=== PATIENT | male | born 1975 | race Caucasian/White ===

== ENCOUNTER 2017-01-29 23:55 | Emergency (ER) | payer SELFPAY ==
[2017-01-30 00:12] LABS: BASOPHILS 0.4 %; BASOPHILS ABSOLUTE 0.04 10/3/uL (0.0-0.16); EOSINOPHILS 1.3 %; EOSINOPHILS ABSOLUTE 0.14 10/3/uL (0.0-0.53); ER CBC TAT 0 Hrs 05 Mins; HEMOGLOBIN 17.2 g/dL (13.6-17.8); IMMATURE GRANULOCYTES 0.5 %; IMMATURE GRANULOCYTES ABSOLUTE 0.05 10/3/uL (0.0-0.11); LYMPHOCYTES 24.3 %; LYMPHOCYTES ABSOLUTE 2.61 10/3/uL (0.67-4.30); MEAN CORPUS HGB CONC 35.4 g/dL (32.0-36.0); MEAN CORPUSCULAR HEMOGLOB 30.6 pg (26.0-34.0); MEAN CORPUSCULAR VOLUME 86.3 fL (80-100); MEAN PLATELET VOLUME 10.6 fL (9.2-13.0); MONOCYTES 5.9 %; MONOCYTES ABSOLUTE 0.63 10/3/uL (0.21-1.20); NEUTROPHILS 67.6 %; NEUTROPHILS ABSOLUTE 7.28 10/3/uL (2.02-8.40); PLATELET COUNT 253 10/3/uL (150-400); RBC DISTRIBUTION WIDTH 13.5 % (12.0-16.0); RED CELL COUNT 5.63 10/6/uL (4.7-6.1); WHITE BLOOD CELLS 10.8 10/3/uL (4.5-10.5)
[2017-01-30 00:14] LABS: HEMATOCRIT 48.6 % (40.0-51.0); MANUAL DIFF NO %
[2017-01-30 00:19] LABS: INTERNATIONAL NORMAL RATI 1.1 UNITS (-); PARTIAL THROMBO TIME 30.9 SEC (22.5-37.2); PROTIME (NOT ORD) 13.6 SEC (12.0-14.5)
[2017-01-30 00:29] LABS: BUN (BLOOD UREA NITROGEN) 16 MG/DL (6-23); CALCIUM, SERUM 9.1 MG/DL (8.5-10.4); CHEST PAIN PROFILE TAT 0 Hrs 22 Mins; CHLORIDE, SERUM 105 MMOL/L (96-112); CO2 (CARBON DIOXIDE) 27 MMOL/L (24-34); CREATININE 0.74 MG/DL (0.70-1.30); GFR AFRICAN AMERICAN 131 ML/MIN (>=60); GFR NON AFRICAN AMERICAN 113 ML/MIN (>=60); GLUCOSE, SERUM 101 MG/DL (60-99); POTASSIUM, SERUM 4.2 MMOL/L (3.5-5.3); SODIUM, SERUM 140 MMOL/L (135-148); TROPONIN I <0.02 NG/ML (<0.05)
== END 2017-01-30 03:59 | disposition left against medical advice (07) ==
LOC: ER 23:55
PROVIDERS: Emergency Medicine
DX: R07.89 Other chest pain (principal); Z88.0 Allergy status to penicillin; Z88.1 Allergy status to other antibiotic agents
CPT/HCPCS: 71020; 80048; 83735; 84484; 85025; 85610; 85730; 93005; 99285; A9270-GY

== ENCOUNTER 2017-06-13 18:04 | Inpatient (IN) | payer OTHER ==
[~2017-06-13] VITALS: Ht 175.3 cm; Wt 134.7 kg
--- NOTE | ~2017-06-13 | HP ---
History And Physical [id number] [place]. [address] NAME: ARLEEN BECK : 71 STATUS : ADM Danielle PAT#: [id number] AGE: 41 ADM/REG DATE : 06/13/17 MR#: [id number] REPORT SERV DATE: 06/14/17 DICTATED BY: ARTEMIO ORTIZ DATE: 06/13/17 REPORT STATUS : Draft TRANSCRIBED BY: MODL DATE: 06/13/17 DATE OF ADMISSION: 06/13/2017 POINT OF ENTRY: [facility] Emergency Department. PRIMARY CARE PHYSICIAN: None at this time. CHIEF COMPLAINT: Shortness of breath, dyspnea on exertion, cough, sputum production, chest pain. HISTORY OF PRESENT ILLNESS: Mr. Beck is a 41-year-old, gentleman with no significant previous medical history, who presents to the emergency room today with a three to four-day history of progressive worsening shortness of breath with associated cough, sputum production, wheezing, and occasional chest pain. The patient states that for the past three to four days, he has had the above-mentioned symptoms. He denies any fevers, night sweats, chills, orthopnea, PND, lower extremity edema, abdominal pain, nausea, vomiting, diarrhea, constipation, melena, hematochezia, hemoptysis, or hematemesis. He states his sputum production is occasionally clear to yellowish in color. He has not taken any medications for his shortness of breath. He does not have any previous history of lung disease but suspects he has sleep apnea. Initial evaluation in the emergency department notable for stable vital signs but was saturating 91% on room air and was placed on 2 L by nasal cannula with improvement in his oxygen saturations. [place] [id number]. ABG notable for a pH of 7.33 with a pCO2 of 60, a pO2 of 80 on 2 L by nasal cannula. Chest x-ray per my review shows no acute cardiopulmonary abnormality but per Radiology review was concerning for mild diffuse interstitial lung disease. EKG and troponin were nonischemic. The patient was subsequently admitted to the Hospitalist Service for further evaluation and management. COMPREHENSIVE REVIEW OF SYSTEMS: Otherwise negative unless listed in history of present illness. PAST MEDICAL HISTORY: Suspected obstructive sleep apnea. SURGICAL HISTORY: Tonsillectomy and adenoidectomy. ALLERGIES: PENICILLIN AND ERYTHROMYCIN. HOME MEDICATIONS: 1. Tylenol 650 mg p.o. p.r.n. 2. Artificial Tears p.r.n. 3. Aspirin 325 mg daily. 4. Ibuprofen 400 mg daily. History And Physical [address] [place]. [address] NAME: ARLEEN BECK : 71 STATUS : ADM Danielle PAT#: [id number] AGE: 41 ADM/REG DATE : 06/13/17 MR#: [id number] REPORT SERV DATE: 06/14/17 DICTATED BY: ARTEMIO ORTIZ DATE: 06/13/17 REPORT STATUS : Draft TRANSCRIBED BY: JA DATE: 06/13/17 5. NyQuil [id number] p.r.n. SOCIAL HISTORY: Smokes about a pack per day. He has at least 20 year pack smoking history. Denies alcohol or illicits. 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 FAMILY HISTORY: Mother with coronary artery disease. Father with hypertension. Siblings with hypertension and diabetes. LABS AND IMAGIN. White count is 12.3, hemoglobin 15.7, hematocrit is 47.6, platelet count is 179, and INR 1.0. 2. Sodium is 138, potassium 4.3, chloride 103, carbon dioxide 31, BUN 10, creatinine 0.68, glucose is 86, calcium is 8.5, magnesium is 1.9. 3. Troponin is less than 0.02. BNP is 179. 4. ABG; pH is 7.33, pCO2 is 60, pO2 is 80, bicarb is 31, saturating 96% 2 L by nasal cannula. 5. Chest x-ray per my review shows no acute cardiopulmonary abnormality. Per Radiology review, it is concerning for mild diffuse interstitial lung disease. 6. EKG per my review shows normal sinus rhythm. No evidence of any acute ischemia or infarction. PHYSICAL EXAMINATION: VITAL SIGNS: Temperature is 97.3 degrees Fahrenheit, pulse is 99, respirations 30, saturating 91% on room air. Blood pressure is 199/111. On recheck, pulse is now 108, saturating 96% on 2 L nasal cannula. Blood pressure is 208/107. GENERAL: The patient is awake, alert, in no acute distress. Resting comfortably. He is an obese male HEENT: Atraumatic and normocephalic. Moist mucous membranes. Pupils are equal, round, reactive to light and accommodation. Extraocular eye movements are intact. No scleral icterus. NECK: No jugular venous distention. No carotid bruits. CARDIAC: Tachycardic rate, regular rhythm. No murmurs, rubs, or gallops. Normal S1, S2. LUNGS: On oxygen in no respiratory distress. Does have some decreased breath sounds in the bases and prolonged expiratory phase as well as some mild inspiratory and expiratory wheezes, primarily in the bases but in all lung irizarry. No rhonchi or rales or crackles appreciated. ABDOMEN: Obese, soft, nontender, nondistended with good bowel sounds. No rebound, guarding, or rigidity. EXTREMITIES: Warm and well perfused. No cyanosis, clubbing, or edema. SKIN: Warm and dry. PSYCH: Affect appropriate. NEURO: Alert and oriented x3. Cranial nerves 2 through 12 grossly intact. Speech is normal. Gait not assessed. ASSESSMENT AND PLAN: Mr. Beck is a 41-year-old, gentleman, who presents with a three to four-day history of shortness of breath, dyspnea on exertion, cough, sputum production, and wheezing, and found to have evidence of acute bronchitis with acute hypoxic respiratory failure. History And Physical [address] [address] NAME: ARLEEN BECK : 71 STATUS : ADM Danielle PAT#: [id number] AGE: 41 ADM/REG DATE : 06/13/17 MR#: [id number] REPORT SERV DATE: 06/14/17 DICTATED BY: ARTEMIO ORTIZ DATE: 06/13/17 REPORT STATUS : Draft TRANSCRIBED BY: JA DATE: 06/13/17 PROBLEM LIST: 1. Acute bronchitis versus acute chronic obstructive pulmonary disease exacerbation. 2. Leukocytosis. 3. Hypertension. 4. Acute on chronic hypoxic and hypercarbic respiratory failure. 5. Morbid obesity. 6. Active tobacco abuse. 7. Abnormal chest x-ray concerning for interstitial lung disease. 8. Chest pain. 9. Shortness of breath, dyspnea on exertion. PLAN: 1. Acute bronchitis versus COPD exacerbation. We will treat with IV steroids, antibiotics as well as frequent bronchodilators and pulmonary toilet. 2. Leukocytosis likely secondary to acute bronchitis versus COPD exacerbation. I do not appreciate any evidence of pneumonia at this time. 3. Acute on chronic hypoxic and hypercarbic respiratory failure. I suspect patient has some degree of chronic hypercarbic hypoxic respiratory failure likely secondary to presumed obstructive sleep apnea, as well as presumed obesity hypoventilation syndrome given the patient's bicarbonate level of 31. We will place the patient at bedtime and intermittent BiPAP as needed as well as the above-mentioned pulmonary treatments and pulmonary toilet. 4. Hypertension. The patient states he is not on anti-hypertensives at this time. We will initially place the patient on some lisinopril, hydrochlorothiazide as well as IV hydralazine p.r.n. 5. Chest pain. I suspect this is all secondary to patient's bronchitis and coughing. EKG and cardiac enzymes are unremarkable. We will continue to trend these out. Follow up echocardiogram. 6. Shortness of breath, dyspnea on exertion likely secondary to the above mentioned but we will check an echocardiogram as well as overnight pulse oximetry. 7. Abnormal chest x-ray. Chest x-ray was read by radiology as concerning for interstitial lung disease. We will check a CT of the chest. 8. DVT prophylaxis. Lovenox subcu. CODE STATUS: The patient wishes to be full code. RUMA/JA Artemio Ortiz MD / [id number] CC: History And Physical [address] [address] NAME: ARLEEN BECK : 71 STATUS : ADM Danielle PAT#: [id number] AGE: 41 ADM/REG DATE : 06/13/17 MR#: [id number] REPORT SERV DATE: 06/14/17 DICTATED BY: ARTEMIO ORTIZ DATE: 06/13/17 REPORT STATUS : Draft TRANSCRIBED BY: JA DATE: 06/13/17 Artemio Ortiz MD
--- NOTE | ~2017-06-13 | DS ---
Discharge Summary [facility] [place]. [address] NAME: ARLEEN BECK : 71 STATUS : DIS IN PAT#: [id number] AGE: 41 ADM/REG DATE : 06/13/17 MR#: [id number] REPORT SERV DATE: 06/19/17 DICTATED BY: AZUL CYR DATE: 06/18/17 REPORT STATUS : Draft TRANSCRIBED BY: MODNury DATE: 06/18/17 ADMISSION DATE: 06/13/2017 DISCHARGE DATE: 06/18/2017 DIAGNOSES: 1. Chronic obstructive pulmonary disease exacerbation versus acute bronchitis. 2. Hypoxic respiratory failure. 3. Pneumonia. 4. Obesity ventilation syndrome. 5. Tobacco abuse. 6. Hypertension. 7. Atypical noncardiac chest discomfort. 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 HOSPITALISTS: Dr. Zenon Yeboah, Dr. Mckeon, Dr. Jacky Zavala, and Dr. Cyr. FOLLOWUP: The patient should follow up with the primary care physician in one to two weeks after discharge and to follow up with Dr. Kurt Viveros, Pulmonary on 07/15/2017 at 12:30 p.m. DISCHARGE MEDICATIONS: Aspirin 325 mg p.o. daily, Tessalon Perles 100 mg p.o. t.i.d. p.r.n., Voltaren topical gel q.6 hours p.r.n., Cozaar 50 mg p.o. daily, Levaquin 750 mg p.o. daily for one day, Tylenol 650 mg p.o. daily p.r.n., Advil 400 mg p.o. daily p.r.n., artificial tears p.r.n., albuterol neb q.6 hours, prednisone taper, Symbicort 160/4.6 two puffs inhaled b.i.d., albuterol MDI two puffs inhaled every four hours p.r.n. HOSPITAL COURSE: Please see H and P dictated by Zenon Yeboah. This is a 41 years old male with a past medical history of obstructive sleep apnea and obesity who presented with a chief complaint of shortness of breath, dyspnea on exertion with productive sputum cough, and some chest discomfort more so with coughing and inspiration. Upon arrival to the ER, the patient required oxygen and brought O2 up to 91%. Had an ABG with a pH of 7.33, pCO2 of 60, PO2 of 80 on 2 L of oxygen. He also had some findings of some diffuse interstitial lung finding/infiltrate on chest x-ray. The patient was admitted to the Hospitalist Service, placed on telemetry, initially admitted, and seen by Dr. Mckeon. The patient was continued on bronchodilators as well as a steroid taper. There were some findings of suspected obesity hypoventilation syndrome. The patient was seen by Pulmonary who agreed with the patient's current regimen such as bronchodilators and steroid taper, and completion of antibiotic, and recommended for the patient to follow up with Dr. Viveros as an outpatient. The patient had slow clinical course, but it did improve and had improvement and decreased shortness of breath and decreased dyspnea on exertion. He did have a cardiac stress test ordered by admitting provider that was a negative-risk stress test/low-risk stress test. The patient had clinical improvement and will be checked for home oxygen qualification. Case Management has been consulted to assist with care as well for his nebulizers for home. The patient has been educated that oxygen is highly flammable and not to have brown open flame and also no tobacco abuse. The patient expressed his understanding and the patient Discharge Summary [address] [address] NAME: ARLEEN BECK : 71 STATUS : DIS IN [facility]#: [id number] AGE: 41 ADM/REG DATE : 06/13/17 MR#: [id number] REPORT SERV DATE: 06/19/17 DICTATED BY: AZUL CYR DATE: 06/18/17 REPORT STATUS : Draft TRANSCRIBED BY: JA DATE: 06/18/17 was discharged to home in stable condition to follow up as an outpatient. [facility]/JA Azul Cyr M.D. / [id number] CC: Azul Cyr M.D. [facility] Kurt Viveros M.D.
--- NOTE | ~2017-06-13 | CN ---
Consultation Report [facility] [address] [place]. [address] NAME: RYNE BECK : 71 STATUS : ADM IN PAT#: [id number] AGE: 41 ADM/REG DATE : 06/13/17 MR#: [id number] REPORT SERV DATE: 06/17/17 DICTATED BY: BOYD CAMPOS DATE: 06/17/17 REPORT STATUS : Draft TRANSCRIBED BY: MODL DATE: 06/17/17 CONSULT NOTE DATE OF CONSULTATION: 06/17/2017 CHIEF COMPLAINT: Shortness of breath, cough, and wheeze in a patient with probable acute bronchitis. HISTORY OF PRESENT ILLNESS: Mr. Ryne Beck is a very pleasant 41-year-old morbidly obese white male with a past medical history significant for probable obstructive sleep apnea, previous pneumonias, and ongoing tobacco abuse, who presents to [facility]'s Emergency Room with complaints of three to four day worsening shortness of breath and wheezing. It should be noted that the patient has not been hospitalized recently and usually has done fairly well as an outpatient. Mr. Beck is not currently established with a chart writer. He does not usually require supplemental oxygen. He is on no nebulized medications. The patient has smoked up until the time of presentation. He has smoked approximately one pack a day for at least 20 years. He does confirm symptomatology consistent with obstructive sleep apnea, which would include snoring, daytime somnolence, frequent nocturnal awakenings, awakening gasping for air. He describes his exercise tolerance previous to this recent hospitalization as being excellent, being able to walk at least a city block before experiencing shortness of breath. Mr. 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 He states that this predisposed him for pneumonias. He states that he was "the boy in the bubble" for the for six years of his life. At some point during this time, he had a tonsillectomy and adenoidectomy. More recently, approximately six or seven days ago, he was mowing his yard. During this time, he was exposed to significant allergens. He states he woke up the next morning with shortness of breath, cough, and wheezing. This became progressively worse and ultimately culminated in his presentation to [facility]'s Emergency Room. Upon arrival, the patient was afebrile. He did have a systolic blood pressure of 199. His oxygenation was 91% on room air. An arterial blood gas was obtained, which revealed a pH 7.32, PaCO2 of 60, and a PaO2 of 79.5. His initial white blood cell count was 12,300. Chest x-ray was obtained, which revealed mild diffuse infiltrates. He did eventually undergo a CT of the chest, which was read as containing patchy scattered bilateral pulmonary infiltrates. These are new in comparison to a CT of the chest performed 05/16/2016. The patient received antibiotics, steroids, and breathing treatments. That being said, he has had persistent dyspnea and wheeze. For the aforementioned reasons, he has been referred to the Pulmonary Service for further assessment. The patient's main pulmonary complaint today is dyspnea on exertion. He does have some wheezing as well. He does have a dry nonproductive cough. The patient is not producing any Consultation Report [address] [address] NAME: RYNE BECK : 71 STATUS : ADM IN [facility]#: [id number] AGE: 41 ADM/REG DATE : 06/13/17 MR#: [id number] REPORT SERV DATE: 06/17/17 DICTATED BY: BOYD CAMPOS DATE: 06/17/17 REPORT STATUS : Draft TRANSCRIBED BY: JA DATE: 06/17/17 purulent sputum. He has had no episodes of hemoptysis. He does confirm previous pneumonias. He denies a formal diagnosis of asthma, chronic bronchitis, or emphysema. He has had no recent sick contacts. The patient currently denies any murmurs, angina, or palpitations. He denies any worsening lower extremity edema. In regard to constitutional symptoms, he currently denies fever, chills, nausea, vomiting, chest pain. He does have some chest wall soreness, he attributes to coughing. He denies any abdominal pain or edema. 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 PAST SURGICAL HISTORY: Tonsillectomy/adenoidectomy. FAMILY HISTORY: The patient denies family history of lung disease. SOCIAL HISTORY: The patient states that he has been . He currently has a girlfriend. He has two children, who are in good health. 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 He denies any known exposures to dust, silica, or asbestos. TOBACCO/ALCOHOL: As previously mentioned, Mr. Beck has smoked up until the time of presentation. He has smoked approximately one pack a day for a period of 20 years. He denies any recent alcohol or illicit drug use. MEDICATIONS: Acetaminophen 325 mg, aspirin 325 mg, ibuprofen. ALLERGIES: THE PATIENT HAS KNOWN ALLERGY TO PENICILLIN AND ERYTHROMYCIN. REVIEW OF SYSTEMS: A complete review of systems was performed with pertinent positives and negatives contained within the body of the HPI. PHYSICAL EXAMINATION: GENERAL: Mr. Ryne Beck is a pleasant, morbidly obese 41-year-old white male, who is not currently exhibiting any signs of acute distress. SKIN: Skin with appropriate texture and turgor. No rashes, lesions, or ulcers. HEENT: Head: Skull is normocephalic, atraumatic. Eyes: Sclerae anicteric. Ears: Auricles and tragus without pain to palpation. Nose: Bilateral nasal patency. Throat: The patient is Mallampati class IV. NECK: Supple. Significant redundant tissue appreciated. Trachea is midline. THORAX/LUNGS: Diffuse expiratory wheezes appreciated throughout the lower lung irizarry. There is also some upper airway noise appreciated as well. ABDOMEN: Protuberant, nontender, nondistended. Consultation Report [address] [address] NAME: RYNE BECK : 71 STATUS : ADM IN [facility]#: [id number] AGE: 41 ADM/REG DATE : 06/13/17 MR#: [id number] REPORT SERV DATE: 06/17/17 DICTATED BY: BOYD CAMPOS DATE: 06/17/17 REPORT STATUS : Draft TRANSCRIBED BY: MODNury DATE: 06/17/17 MUSCULOSKELETAL: Full AROM and PROM in all joints. PERIPHERAL VASCULAR: No edema. NEUROLOGIC: Cranial nerves 2 through 12 grossly intact. PSYCHIATRIC: The patient is alert and oriented x3. ACCESSORY DATA: Reveals electrolyte panel within normal limits. White blood cell count 50,500, hemoglobin and hematocrit are 16.1 and 48.3. BNP is 179.0. Blood cultures are negative to date. An overnight pulse oximetry notes 328 desaturations with over 2 hours with oxygenation sats under 88%. CT of the chest reveals patchy scattered bilateral infiltrates. Echocardiogram reveals a left ventricular ejection fraction of 50% to 55%. IMPRESSION: 1. Acute bronchitis. 2. Clinical chronic obstructive pulmonary disease with a significant asthmatic component. 3. Obesity hypoventilation syndrome with mild chronic hypoxemia and hypercapnia. 4. Probable obstructive sleep apnea. 5. Tobacco dependency - complicated. PLAN: 1. At this time, the patient has been appropriately placed on a five-day course of antibiotics. He is also received IV Solu-Medrol and is now on prednisone. I would suspect that he would need a prolonged prednisone taper given the significance of his wheezing. We will transition him from nebulized medications to inhaled medications. He will need to be placed on an inhaled corticosteroid as a maintenance medication prior to discharge. We will offer the patient outpatient followup and we will obtain pulmonary function testing at that time. 2. In regard to the patient's obesity hypoventilation syndrome, we will schedule an outpatient polysomnography with a titration study to follow for his probable obstructive sleep apnea. 3. In regard to the patient's tobacco dependency - complicated, we spent greater than 10 minutes counseling the patient in the benefits of smoking cessation. 4. In regard to the patient's morbid obesity, we have had an extensive conversation regarding exercise and diet and his need for weight loss. The aforementioned impression and plan has been discussed with Dr. Viveros, who will follow further recommendations. We thank you for this consult and look forward to participating in the care of Mr. Ryne Beck. GBS/MODL Boyd Weir Consultation Report [address] [address] NAME: RYNE BECK : 71 STATUS : ADM IN PAT#: [id number] AGE: 41 ADM/REG DATE : 06/13/17 MR#: [id number] REPORT SERV DATE: 06/17/17 DICTATED BY: BOYD CAMPOS DATE: 06/17/17 REPORT STATUS : Draft TRANSCRIBED BY: MODL DATE: 06/17/17 ORA Campos / [id number] CC: Genia Hanley M.D.
--- NOTE | ~2017-06-13 | PUL ---
[id number] [place]. [address] NAME: ARLEEN BECK : 71 STATUS : DIS IN PAT#: [id number] AGE: 41 ADM/REG DATE : 06/13/17 MR#: [id number] REPORT SERV DATE: 06/21/17 DICTATED BY: MARA POSEY DATE: 06/21/17 REPORT STATUS : Draft TRANSCRIBED BY: MODL DATE: 06/21/17 PULMONARY FUNCTION TEST PROCEDURE PERFORMED: Overnight oximetry performed on supplemental oxygen. The patient was on 3 L and despite that, he had over 2 hours of significant oxygen desaturations to below 88% and had a very high desaturation event index of over 50 events an hour. IMPRESSION: Very abnormal study with ongoing hypoxemia and desaturation despite supplemental oxygen. Consider formal sleep study if clinically indicated. The patient certainly qualifies for supplemental oxygen. SAYRA/JA Mara Posey M.D. / [id number] CC: Genia Hanley M.D. NO LISETTE
[2017-06-13 18:26] LABS: BASOPHILS 0.2 %; BASOPHILS ABSOLUTE 0.02 10/3/uL (0.0-0.16); EOSINOPHILS 2.5 %; EOSINOPHILS ABSOLUTE 0.31 10/3/uL (0.0-0.53); HEMATOCRIT 47.6 % (40.0-51.0); HEMOGLOBIN 15.7 g/dL (13.6-17.8); IMMATURE GRANULOCYTES 0.2 %; IMMATURE GRANULOCYTES ABSOLUTE 0.02 10/3/uL (0.0-0.11); LYMPHOCYTES 10.6 %; MEAN CORPUSCULAR HEMOGLOB 29.7 pg (26.0-34.0); MEAN PLATELET VOLUME 10.9 fL (9.2-13.0); MONOCYTES 4.7 %; MONOCYTES ABSOLUTE 0.58 10/3/uL (0.21-1.20); NEUTROPHILS 81.8 %; NEUTROPHILS ABSOLUTE 10.03 10/3/uL (2.02-8.40); PLATELET COUNT 179 10/3/uL (150-400); RED CELL COUNT 5.29 10/6/uL (4.7-6.1); WHITE BLOOD CELLS 12.3 10/3/uL (4.5-10.5)
[2017-06-13 18:27] LABS: MANUAL DIFF NO %
[2017-06-13 18:35] LABS: PARTIAL THROMBO TIME 31.6 SEC (22.5-37.2); PROTIME (NOT ORD) 13.5 SEC (12.0-14.5)
[2017-06-13 18:42] LABS: CALCIUM, SERUM 8.5 MG/DL (8.5-10.4); CHEST PAIN PROFILE TAT 0 Hrs 22 Mins; CHLORIDE, SERUM 103 MMOL/L (96-112); CO2 (CARBON DIOXIDE) 31 MMOL/L (24-34); CREATININE 0.68 MG/DL (0.70-1.30); GFR AFRICAN AMERICAN 136 ML/MIN (>=60); GFR NON AFRICAN AMERICAN 117 ML/MIN (>=60); GLUCOSE, SERUM 86 MG/DL (60-99); POTASSIUM, SERUM 4.3 MMOL/L (3.5-5.3); SODIUM, SERUM 138 MMOL/L (135-148); TROPONIN I <0.02 NG/ML (<0.05)
[2017-06-13 18:43] LABS: BUN (BLOOD UREA NITROGEN) 10 MG/DL (6-23)
[2017-06-13 20:32] LABS: ALLENS TEST Pos; BE (BASE EXCESS) 2.7 MEQ/L (0 +/- 2.5); CARBOXYHEMOGLOBIN 3.9 % (0-3); DEVICE NC; HCO3 (ACTUAL BICARBONATE) 30.6 MEQ/L (23-27); HEMOBLOGIN CONTENT 16.6 G/DL (14-18); INSTRUMENT SERIAL # 8087; METHEMOGLOBIN 0.3 % (0-3); O2 CONTENT 21.4 VOL% (18-24); OPERATOR ID 30013; PCO2 (CO2 TENSION) 60 MMHG (35-45); PO2 (O2 TENSION) 80 MMHG (79-93); SAMPLE Arterial; pH 7.33 (7.37-7.43)
[2017-06-13] MEDS ORDERED: T PO (20:36)
[2017-06-13] MEDS ORDERED: ASABAYER PO (20:36)
[2017-06-13] MEDS ORDERED: REFRESH OPH SO0.3 ML OPH (20:37)
[2017-06-13] MEDS ORDERED: ADVIL PO (20:37)
[2017-06-13] MEDS ORDERED: NYQUIL OTC (20:37)
[2017-06-13 23:44] LABS: ULTRASENSITIVE TSH 0.482 MCIU/ML (0.358-3.740)
[2017-06-14 00:49] LABS: CPK 56 U/L (0-200); TROPONIN I <0.02 NG/ML (<0.05)
[2017-06-14 00:55] LABS: CK-MB 1.6 NG/ML
[2017-06-14 03:28] LABS: ALLENS TEST Pos; BE (BASE EXCESS) 3.8 MEQ/L (0 +/- 2.5); CARBOXYHEMOGLOBIN 1.2 % (0-3); HCO3 (ACTUAL BICARBONATE) 30.3 MEQ/L (23-27); HEMOBLOGIN CONTENT 16.7 G/DL (14-18); INSTRUMENT SERIAL # 35151; METHEMOGLOBIN 0.4 % (0-3); O2 CONTENT 21.9 VOL% (18-24); OPERATOR ID 30013; PCO2 (CO2 TENSION) 52 MMHG (35-45); PO2 (O2 TENSION) 75 MMHG (79-93); SAMPLE Arterial; pH 7.38 (7.37-7.43)
[2017-06-14 05:23] LABS: BASOPHILS 0 %; EOSINOPHILS 0.1 %; EOSINOPHILS ABSOLUTE 0.01 10/3/uL (0.0-0.53); HEMATOCRIT 46.5 % (40.0-51.0); HEMOGLOBIN 15.8 g/dL (13.6-17.8); IMMATURE GRANULOCYTES 0.3 %; IMMATURE GRANULOCYTES ABSOLUTE 0.04 10/3/uL (0.0-0.11); LYMPHOCYTES ABSOLUTE 0.41 10/3/uL (0.67-4.30); MEAN CORPUSCULAR HEMOGLOB 30.1 pg (26.0-34.0); MEAN CORPUSCULAR VOLUME 88.6 fL (80-100); MONOCYTES 0.7 %; NEUTROPHILS 95.9 %; NEUTROPHILS ABSOLUTE 13.24 10/3/uL (2.02-8.40); PLATELET COUNT 179 10/3/uL (150-400); RED CELL COUNT 5.25 10/6/uL (4.7-6.1); WHITE BLOOD CELLS 13.8 10/3/uL (4.5-10.5)
[2017-06-14 05:27] LABS: BUN (BLOOD UREA NITROGEN) 10 MG/DL (6-23); CALCIUM, SERUM 8.8 MG/DL (8.5-10.4); CHLORIDE, SERUM 103 MMOL/L (96-112); CO2 (CARBON DIOXIDE) 28 MMOL/L (24-34); CREATININE 0.61 MG/DL (0.70-1.30); GFR AFRICAN AMERICAN 142 ML/MIN (>=60); GFR NON AFRICAN AMERICAN 122 ML/MIN (>=60); POTASSIUM, SERUM 3.9 MMOL/L (3.5-5.3); SODIUM, SERUM 138 MMOL/L (135-148)
[2017-06-14 05:31] LABS: GLUCOSE, SERUM 142 MG/DL (60-99)
[2017-06-14 05:44] LABS: MANUAL DIFF NO %
[2017-06-14 06:52] LABS: CPK 56 U/L (0-200); TROPONIN I <0.02 NG/ML (<0.05)
[2017-06-14 06:53] LABS: CK-MB 1.7 NG/ML
[2017-06-14 10:06] LABS: GLYCOHEMOGLOBIN (HbA1c) 5.7 % (4.7-6.1)
[2017-06-15 04:43] LABS: BASOPHILS 0 %; EOSINOPHILS 0 %; HEMATOCRIT 44.6 % (40.0-51.0); IMMATURE GRANULOCYTES 0.5 %; IMMATURE GRANULOCYTES ABSOLUTE 0.09 10/3/uL (0.0-0.11); LYMPHOCYTES 3.6 %; LYMPHOCYTES ABSOLUTE 0.64 10/3/uL (0.67-4.30); MEAN CORPUS HGB CONC 33.6 g/dL (32.0-36.0); MEAN CORPUSCULAR HEMOGLOB 29.8 pg (26.0-34.0); MEAN CORPUSCULAR VOLUME 88.7 fL (80-100); MEAN PLATELET VOLUME 11.2 fL (9.2-13.0); MONOCYTES 2.4 %; MONOCYTES ABSOLUTE 0.42 10/3/uL (0.21-1.20); NEUTROPHILS 93.5 %; NEUTROPHILS ABSOLUTE 16.57 10/3/uL (2.02-8.40); PLATELET COUNT 186 10/3/uL (150-400); RBC DISTRIBUTION WIDTH 14.3 % (12.0-16.0); RED CELL COUNT 5.03 10/6/uL (4.7-6.1); WHITE BLOOD CELLS 17.7 10/3/uL (4.5-10.5)
[2017-06-15 04:45] LABS: MANUAL DIFF NO %
[2017-06-15 04:57] LABS: ALBUMIN 3.5 G/DL (3.5-5.0); CHLORIDE, SERUM 99 MMOL/L (96-112); CO2 (CARBON DIOXIDE) 29 MMOL/L (24-34); CREATININE 0.62 MG/DL (0.70-1.30); GFR AFRICAN AMERICAN 141 ML/MIN (>=60); GFR NON AFRICAN AMERICAN 121 ML/MIN (>=60); GLUCOSE, SERUM 139 MG/DL (60-99); PHOSPHORUS, SERUM 3.5 MG/DL (2.5-4.5); POTASSIUM, SERUM 3.8 MMOL/L (3.5-5.3); SODIUM, SERUM 135 MMOL/L (135-148)
[2017-06-15 04:59] LABS: BUN (BLOOD UREA NITROGEN) 22 MG/DL (6-23)
[2017-06-16 05:38] LABS: BUN (BLOOD UREA NITROGEN) 24 MG/DL (6-23); CALCIUM, SERUM 8.6 MG/DL (8.5-10.4); CHLORIDE, SERUM 101 MMOL/L (96-112); CO2 (CARBON DIOXIDE) 29 MMOL/L (24-34); CREATININE 0.58 MG/DL (0.70-1.30); GFR AFRICAN AMERICAN 145 ML/MIN (>=60); GFR NON AFRICAN AMERICAN 125 ML/MIN (>=60); GLUCOSE, SERUM 118 MG/DL (60-99); POTASSIUM, SERUM 4.2 MMOL/L (3.5-5.3); SODIUM, SERUM 137 MMOL/L (135-148)
[2017-06-16 05:46] LABS: BASOPHILS 0.1 %; BASOPHILS ABSOLUTE 0.01 10/3/uL (0.0-0.16); EOSINOPHILS 0 %; HEMATOCRIT 48.3 % (40.0-51.0); HEMOGLOBIN 16.1 g/dL (13.6-17.8); IMMATURE GRANULOCYTES 0.3 %; IMMATURE GRANULOCYTES ABSOLUTE 0.05 10/3/uL (0.0-0.11); LYMPHOCYTES 3.8 %; LYMPHOCYTES ABSOLUTE 0.58 10/3/uL (0.67-4.30); MANUAL DIFF NO %; MEAN CORPUS HGB CONC 33.3 g/dL (32.0-36.0); MEAN CORPUSCULAR HEMOGLOB 30.6 pg (26.0-34.0); MEAN CORPUSCULAR VOLUME 91.7 fL (80-100); MEAN PLATELET VOLUME 11.3 fL (9.2-13.0); MONOCYTES 1.9 %; NEUTROPHILS 93.9 %; NEUTROPHILS ABSOLUTE 14.52 10/3/uL (2.02-8.40); PLATELET COUNT 204 10/3/uL (150-400); RBC DISTRIBUTION WIDTH 14.4 % (12.0-16.0); RED CELL COUNT 5.27 10/6/uL (4.7-6.1); WHITE BLOOD CELLS 15.5 10/3/uL (4.5-10.5)
[2017-06-18] MEDS ORDERED: TESS PO (15:43)
[2017-06-18] MEDS ORDERED: ASABAYER PO (15:44)
[2017-06-18] MEDS ORDERED: VOLTAREN1 % TOP (15:45)
[2017-06-18] MEDS ORDERED: COZ50 PO (15:45)
[2017-06-18] MEDS ORDERED: P10 (16:08)
[2017-06-18] MEDS ORDERED: PROAIR HFA INH (17:05)
[2017-06-18] MEDS ORDERED: ALBUTEROL0.63 MG/3 INH (17:06)
[2017-06-18] MEDS ORDERED: SYMBICORT 160/41 INH INH (17:06)
== END 2017-06-18 17:05 | disposition home or self-care (01) | DRG 189 ==
LOC: ENRESERV → ENRESERVTM → ENRESERVDT → ER 18:04 → CDU1 21:19 → CDU2 21:19 → 1SO 21:19 → CDU2 21:30 → 1SO 06-15 13:48
PROVIDERS: Emergency Medicine; Hospitalist; Internal Medicine; Nurse Practitioner Family
DX: J96.21 Acute and chronic respiratory failure with hypoxia (principal); J18.9 Pneumonia, unspecified organism; J44.0 Chronic obstructive pulmonary disease with (acute) lower respiratory infection; E66.2 Morbid (severe) obesity with alveolar hypoventilation; J44.1 Chronic obstructive pulmonary disease with (acute) exacerbation; Z68.41 Body mass index [BMI] 40.0-44.9, adult; J96.22 Acute and chronic respiratory failure with hypercapnia; J20.9 Acute bronchitis, unspecified; I10 Essential (primary) hypertension; F17.210 Nicotine dependence, cigarettes, uncomplicated; Z79.82 Long term (current) use of aspirin; Z79.899 Other long term (current) drug therapy; Z87.01 Personal history of pneumonia (recurrent); Z88.0 Allergy status to penicillin; Z88.1 Allergy status to other antibiotic agents
CPT/HCPCS: 36600; 71020; 71250; 78452; 80048; 80069; 82550; 82553; 82805; 83036; 83735; 83880; 84439; 84443; 84484; 85025; 85610; 85730; 87040; 87070; 87205; 93005; 93017; 94640; 94660; 94667; 94668; 94762; 96374; 96375; 99291; A9270-GY; A9502; C8929; J0360; J1170; J1250; J1885; J1956; J2930; Q9957